=== PATIENT | male | born 2000 | race Caucasian/White ===

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

== ENCOUNTER 2021-02-15 11:09 | Emergency (ER) | payer MEDICAID ==
[~2021-02-15] VITALS: Ht 165.1 cm; Wt 96.7 kg
[2021-02-15 11:25] VITALS: BP 151/58
--- NOTE | 2021-02-15 11:49 | NUR ---
PT IN ER LOBBY, EKG DONE
--- NOTE | 2021-02-15 12:28 | NUR ---
PATIENT LEFT WITHOUT BEING SEEN BY . NO FURTHER CARE PROVIDED FOR PATIENT.
== END 2021-02-15 12:28 | disposition left against medical advice (07) ==
LOC: MED 11:09
DX: Z53.21 Procedure and treatment not carried out due to patient leaving prior to being seen by health care provider (principal)
CPT/HCPCS: 73130; 93005; 99281

== ENCOUNTER 2021-04-01 06:59 | Emergency (ER) | payer OTHER, SELFPAY ==
[~2021-04-01] VITALS: Ht 180.3 cm; Wt 115.2 kg
[2021-04-01 07:33] VITALS: BP 150/57
[2021-04-01] MEDS ORDERED: ACET-10509 PO (07:36)
[2021-04-01] MEDS ORDERED: IBUP-1842 PO (07:36)
--- NOTE | 2021-04-01 07:46 | NUR ---
COLLECTED NOVEL, TO LAB.
[2021-04-01] MEDS ORDERED: ONDA8TAB87 PO (08:21)
[2021-04-01 08:49] VITALS: BP 144/63
--- NOTE | 2021-04-01 08:50 | NUR ---
Patient discharged with v/s stable. Written and verbal after care instructions given COVID 19 AND PUI and explained. Patient alert, oriented and verbalized understanding of instructions. Ambulatory with steady gait. All questions addressed prior to discharge. ID band removed. Patient advised to follow up with PMD. Rx of IBUPROFEN, TYNENOL, AND ZOFRAN given. Patient educated on indication of medication including possible reaction and side effects. Opportunity to ask questions provided and answered.
== END 2021-04-01 08:50 | disposition home or self-care (01) ==
LOC: MED 06:59
DX: R11.2 Nausea with vomiting, unspecified (principal); Z20.822 Contact with and (suspected) exposure to COVID-19; R19.7 Diarrhea, unspecified; F12.90 Cannabis use, unspecified, uncomplicated; Z79.899 Other long term (current) drug therapy
CPT/HCPCS: 99283; U0003